=== PATIENT | female | born 1970 | race Two or more races ===

== ENCOUNTER 2024-04-19 09:25 | Emergency (ER) | payer OTHER ==
[~2024-04-19] VITALS: Ht 162.6 cm; Wt 104.7 kg
[2024-04-19 11:39] LABS: COVID19 ANTIGEN SOFIA FIA NEGATIVE (NEGATIVE); Rapid Influenza A Negative (Negative); Rapid Influenza B Negative (Negative)
[2024-04-19] MEDS ORDERED: PROM1SOL4 PO (12:13)
[2024-04-19] MEDS ORDERED: IBUP-1455 PO (12:13)
--- NOTE | 2024-04-19 12:14 | ED.PDOC ---
Eye-HPI HPI Comments pt complaining of ST x 2 days, she has also been having mild cough with chest tightness. no fever. ST feels like it is getting worse. Chief Complaint: Sore Throat Time Seen by MD: 10:21 Reviewed Notes: Nurses Notes Allergies: Coded Allergies: NO KNOWN ALLERGIES (Unverified , 04/19/24) Information Source: Patient Mode of Arrival: Ambulatory Past Medical History PAST MEDICAL HISTORY: Denies Surgical History: Denies all surgeries PRODUCT TRANSFER PUMPER History: No Pertinent PRODUCT TRANSFER PUMPER History Constitutional: denies: chills, diaphoresis, fatigue, fever, malaise, sweats, weakness, others EENTM: reports: nose congestion, throat swelling; denies: blurred vision, double vision, ear bleeding, ear discharge, ear drainage, ear pain, ear ringing, eye pain, eye redness, hearing loss, mouth pain, mouth swelling, nasal discharge, nose bleeding, nose pain, photophobia, tearing, throat pain, voice changes, others Respiratory: denies: cough, hemoptysis, orthopnea, SOB at rest, shortness of breath, SOB with excertion, stridor, wheezing, others Cardiovascular: denies: chest pain, dizzy spells, diaphoresis, Dyspnea on exertion, edema, irregular heart beat, left arm pain, lightheadedness, palpitations, PND, syncope, others Gastrointestinal: denies: abdomen distended, abdominal pain, blood streaked bowels, constipated, diarrhea, dysphagia, difficulty swallowing, hematemesis, melena, nausea, poor appetite, poor fluid intake, rectal bleeding, rectal pain, vomiting, others Genitourinary: denies: abnormal vagina bleeding, burning, dyspareunia, dysuria, flank pain, frequency, hematuria, incontinence, pain, , vagina d ischarge, urgency, others Neurological: denies: dizziness, fainting, headache, left sided numbness, left sided weakness, numbness, paresthesia, pre-existing deficit, right sided numbness, right sided weakness, seizure, speech problems, tingling, tremors, weakness, others Musculoskeletal: denies: back pain, gout, joint pain, joint swelling, muscle pain, muscle stiffness, neck pain, others Integumetry: denies: bruises, change in color, change in hair/nails, dryness, laceration, lesions, lumps, rash, wounds, others Allergic/Immunocompromised: denies: Difficulty Healing, Frequent Infections, Hives, Itching, others Hematologic/Lymphatic: denies: anemia, blood clots, easy bleeding, easy bruising, swollen glands, others Physical Exam General Appearance: No Apparent Distress, Normal HEENT: Normal ENT Inspection, Pharynx Normal, TMs Normal Neck: Full Range of Motion, Non-Tender, Normal, Normal Inspection Respiratory: Chest Non-Tender, Lungs Clear, No Accessory Muscle Use, No Respiratory Distress, Normal Breath Sounds Cardiovascular: No Edema, No JVD, No Murmur, No Gallop, Normal Peripheral Pulses, Regular Rate/Rhythm Breast Exam: Deferred Gastrointestinal: No Organomegaly, Non Tender, No Pulsatile Mass, Normal Bowel Sounds, Soft Genitalia: Deferred Pelvic: Deferred Rectal: Deferred Extremities: No calf tenderness, Normal capillary refill, Normal inspection, Normal range of motion, Non-tender, No pedal edema Musculoskeletal : Apperance: Normal Neurologic: Alert, performance improvement coordinator II-XII nml as Tested, No Motor Deficits, Normal Affect, Normal Mood, No Sensory Deficits Cerebellar Function: Normal Reflexes: Normal Skin: Dry, Normal Color, Warm Lymphatic: No Adenopathy Was a procedure done? Was a procedure done?: No EENT DIFF Eye: N/A Sore Throat: Peritonsillar Abscess, Peritonsillar Cellulitis, Pharyngitis X-Ray, Labs, Meds, VS Vital Signs Date Time Temp Pulse Resp B/P (MAP) Pulse Ox O2 Delivery O2 Flow Rate FiO2 04/19/24 10:33 Room Air* 0 21 04/19/24 09:40 98.6 80 20 169/96 (120) 98 Lab Test 04/19/24 10:30 Range/Units Influenza Type A Antigen Negative Negative Influenza Type B Antigen Negative Negative SARS-CoV-2 Antigen (Rapid) Negative NEGATIVE X-Ray, Labs, Meds, VS Comment vitals reviewed labs neg pt clinically stable for DC Time of 1ST Reevaluation: 12:14 Reevaluation 1ST: Improved Patient Education/Counseling: Diagnosis, Treatment, Need For Follow Up (follow up with pcp in 3-5 days) Family Education/Counseling: Diagnosis Departure 1 Departure Time of Disposition: 12:12 Impression: Primary Impression: URI (upper respiratory infection) Qualified Codes: J06.9 - Acute upper respiratory infection, unspecified Disposition: HOME / SELF CARE / HOMELESS Condition: Fair e-Prescriptions Promethazine-Dm (Promethazine Dm 6.25-15 mg/5Ml) 1 Ambika Ambika 5 ML PO TID PRN, #240 ML Prov: BRIAN ZAMBRANO 04/19/24 Ibuprofen Micronized (Ibuprofen) 800 Mg Tab 800 MG PO TID PRN, #30 TAB Prov: BRIAN ZAMBRANO 04/19/24 Discharged With: Self Critical Care Note Critical Care Time?: No Stability Stability form required: No Heart Score Heart Score: Heart Score Response (Comments) Value History N/A 0 EKG N/A 0 Age N/A 0 Risk Factors N/A 0 Troponin N/A 0 Total 0 BRIAN ZAMBRANO Apr 19, 2024 12:14
[2024-04-19 12:20] VITALS: BP 125/92; PULSE 71; RESP 18; TEMP 98.6; O2SAT 98
== END 2024-04-19 12:24 | disposition home or self-care (01) ==
LOC: ER 09:25
DX: J06.9 Acute upper respiratory infection, unspecified (principal); R07.89 Other chest pain; Z20.822 Contact with and (suspected) exposure to COVID-19
CPT/HCPCS: 36415; 87426; 87804

== ENCOUNTER 2025-04-02 19:51 | Emergency (ER) | payer OTHER ==
[~2025-04-02] VITALS: Ht 162.6 cm; Wt 108.6 kg
[~2025-04-02 19:51] MED LIST: IBUP-1455 PO; PROM1SOL4 PO
--- NOTE | 2025-04-02 20:46 | ED.PDOC ---
HPI Comments 54-year-old female with a past medical history of hypertension, hypothyroidism, rheumatoid arthritis, and lower extremity varices has come to the ED with chief complaints of dizziness that started today afternoon. She reports after feeling dizzy, she checked her blood pressure at home and it was 180/112 mmHg which prompted her to visit the ER. On inquiry, patient states she took her antihypertensive medication Benazepril 5mg today morning and has been compliant with her medications daily. Patient reports the dizziness lasted for about an hour, associated with tingling sensation in her left lower face, right-sided shoulder pain, fatigue, nausea and 1 episode of nonbloody, watery emesis. She also reports of burning sensation in her right leg and is concerned regarding her varicies. On inquiry, patient reports she has a slight dry cough, but denies any fever, chills, recent emotional stressors, facial drooping, slurring of speech, weakness in any extremity, vision changes, chest pain, shortness of breath, palpitations, recent travel history or any sick contacts. On initial assessment, patient is A&O x4, blood pressure is 159/88 mmHg, temp 97.8, RR 16, HR 83, SpO2 99% in room air. Chief Complaint: Dizziness Time Seen by MD: 20:05 Reviewed Notes: Nurses Notes, Medications, Allergies Allergies: Coded Allergies: NO KNOWN ALLERGIES (Unverified , 04/19/24) Home Meds Active Scripts Promethazine-Dm (Promethazine Dm 6.25-15 mg/5Ml) 1 Ambika Ambika, 5 ML PO TID PRN, #240 ML Prov:BRIAN KURTZ 04/19/24 Ibuprofen Micronized (Ibuprofen) 800 Mg Tab, 800 MG PO TID PRN, #30 TAB Prov:BRIAN KURTZ 04/19/24 Information Source: Patient Mode of Arrival: Ambulatory Severity: Mild Timing: Hours Duration: Since onset Prehospital treatment: None Onset: At Rest Cardiac Risk Factors: HTN PE Risk Factors: None History of: Other (varices) Modifying Factors: Nothing Associated Signs and Symptoms: N/V Past Medical History PAST MEDICAL HISTORY: Arthritis, HTN, Thyroid Past Medical History (Other): Lower extremity varices Surgical History: Denies all surgeries Surgical History (Other): Lower extremity varices surgery in 2014 SHREDDER TENDER PEAT History: No Pertinent SHREDDER TENDER PEAT History Family History Family History: Reviewed,noncontributory to illness Social History Smoker: Non-Smoker Alcohol: Denies ETOH Use Drugs: Denies Drug Use Constitutional: denies: chills, diaphoresis, fatigue, fever, malaise, sweats, weakness, others EENTM: denies: blurred vision, double vision, ear bleeding, ear discharge, ear drainage, ear pain, ear ringing, eye pain, eye redness, hearing loss, mouth pain, mouth swelling, nasal discharge, nose bleeding, nose congestion, nose pain, photophobia, tearing, throat pain, throat swelling, voice changes, others Respiratory: reports: cough; denies: hemoptysis, orthopnea, SOB at rest, shortness of breath, SOB with excertion, stridor, wheezing, others Cardiovascular: reports: dizzy spells, lightheadedness; denies: chest pain, diaphoresis, Dyspnea on exertion, edema, irregular heart beat, left arm pain, palpitations, PND, syncope, others Gastrointestinal: denies: abdomen distended, abdominal pain, blood streaked bowels, constipated, diarrhea, dysphagia, difficulty swallowing, hematemesis, melena, nausea, poor appetite, poor fluid intake, rectal bleeding, rectal pain, vomiting, others Genitourinary: denies: abnormal vagina bleeding, burning, dyspareunia, dysuria, flank pain, frequency, hematuria, incontinence, pain, , vagina discharge, urgency, others Neurological: reports: tingling (On the left side of the lower face); denies: dizziness, fainting, headache, left sided numbness, left sided weakness, numbness, paresthesia, pre-existing deficit, right sided numbness, right sided weakness, seizure, speech problems, tremors, weakness, others Musculoskeletal: reports: others (Right shoulder pain, burning sensation and pain in right lower extremity); denies: back pain, gout, joint pain, joint swelling, muscle pain, muscle stiffness, neck pain Integumetry: denies: bruises, change in color, change in hair/nails, dryness, laceration, lesions, lumps, rash, wounds, others Allergic/Immunocompromised: denies: Difficulty Healing, Frequent Infections, Hives, Itching, others Hematologic/Lymphatic: denies: anemia, blood clots, easy bleeding, easy bruising, swollen glands, others Endocrine: denies: excessive hunger, excessive sweating, excessive thirst, excessive urination, flushing, intolerance to cold, intolerance to heat, unexpl ained weight gain, unexplained weight loss, others Psychiatric: denies: anxiety, bipolar disorder, depression, hopeless, panic disorder, schizophrenia, sleepless, suicidal, others Physical Exam General Appearance: Obese HEENT: Other (No JVD, no pallor, no icterus, patient maintains eye contact) Neck: Full Range of Motion, Other (No enlarged lymph nodes,) Respiratory: No Accessory Muscle Use, No Respiratory Distress, Normal Breath Sounds, Other (Absence of wheezing, stridor, rhonchi) Cardiovascular: No Edema, No JVD, No Murmur, Regular Rate/Rhythm Breast Exam: Deferred Gastrointestinal: none, Normal Bowel Sounds, Other (No tenderness, no rebound tenderness, no guarding, no masses felt) Genitalia: Deferred Pelvic: Deferred Rectal: Deferred Extremities: Leg edema, No calf tenderness, Normal range of motion, Non-tender Neurologic: Normal Affect, Normal Mood, Other (No facial drooping, no sensory motor deficits noted) Cerebellar Function: Normal Reflexes: Normal Skin: Normal Color, Other (No bruising, no rashes, no lacerations) Lymphatic: Other (No cervical lymphadenopathy palpated) Was a procedure done? Was a procedure done?: No CP Differential Dx Differential Diagnosis: Other Other Differential Diagnosis Hypertensive urgency Differential Diagnosis: HTN Essential X-Ray, Labs, Meds, VS Vital Signs Date Time Temp Pulse Resp B/P (MAP) Pulse Ox O2 Delivery O2 Flow Rate FiO2 04/02/25 19:53 97.8 83 16 159/88 99 97.8 Lab Test 04/02/25 20:56 Range/Units White Blood Count 7.5 4.4-10.8 10^3/uL Red Blood Count 4.17 4.0-5.20 10^6/uL Hemoglobin 13.1 12.2-16.2 g/dL Hematocrit 37.6 36.0-46.0 % Mean Corpuscular Volume 90.2 80.0-100.0 fL Mean Corpuscular Hemoglobin 31.5 28.0-32.0 pg Mean Corpuscular Hemoglobin Concent 34.9 32.0-36.0 g/dL Red Cell Distribution Width 12.9 11.8-14.3 % Platelet Count 227 140-450 10^3/uL Mean Platelet Volume 8.2 6.9-10.8 fL Neutrophils (%) (Auto) 69.0 37.0-80.0 % Lymphocytes (%) (Auto) 25.7 10.0-50.0 % Monocytes (%) (Auto) 4.6 0.0-12.0 % Eosinophils (%) (Auto) 0.3 0.0-7.0 % Basophils (%) (Auto) 0.4 0.0-2.0 % Neutrophils # (Auto) 5.2 1.6-8.6 10 ^3/uL Lymphocytes # (Auto) 1.9 0.4-5.4 10 ^3/uL Monocytes # (Auto) 0.3 0-1.3 10 ^3/uL Eosinophils # (Auto) 0 0-0.8 10 ^3/uL Basophils # (Auto) 0 0-0.2 10 ^3/uL Nucleated Red Blood Cells 0.1 % Sodium Level 144 136-145 mmol/L Potassium Level 4.3 3.5-5.1 mmol/L Chloride Level 101 98-107 mmol/L Carbon Dioxide Level 34 H 20-31 mmol/L Anion Gap 9 5-15 Blood Urea Nitrogen 15 9-23 mg/dL Creatinine 0.68 0.550-1.02 mg/dL Glomerular Filtration Rate Calc 105 >90 mL/min BUN/Creatinine Ratio 22.1 H 10.0-20.0 Serum Glucose 96 74-106 mg/dL Calcium Level 9.8 8.7-10.4 mg/dL The patient's CBC and chemistry panel are within normal limits. The ultrasound of the lower extremities are negative for any DVT The chest x-ray is negative The patient is being discharged with a diagnosis of hypertensive urgency The patient will return to the emergency department's the condition worsens. The patient understands and agrees with the management. Images Reviewed?: Images reviewed and evaluated by me Time of 1ST Reevaluation: 21:50 Reevaluation 1ST: Improved Patient Education/Counseling: Diagnosis, Treatment, Prognosis, Need For Follow Up Family Education/Counseling: No Family Present Comments Patient came in with dizziness and elevated blood pressure. CBC and BMP were unremarkable, EKG shows normal sinus rhythm. Chest x-ray showed 'No acute disease'. Bilateral lower extremity Doppler was done as patient complained of burning sensation in her lower extremity which showed 'no sonographic evidence for DVT in bilateral extremities, left popliteal fossa Rodriguez cyst'. Patient is now stable and is being discharged. She has been counseled to follow up with primary care physician, adhere to a low-salt diet and to return to the ER if she has any distress such as chest pain, shortness of breath, headache, elevated blood pressure, dizziness, palpitations or any other symptoms. SEPSIS Sepsis Screen Date sepsis recognized/suspect: Apr 02, 2025 Time Sepsis recognized/suspect: 1952 Recent Procedure: No On Antibiotic Therapy: No Respiratory Rate >20: No Heart Rate >90: No Temp<36 C (96.8 F) or >38.3 C: No SBP <90 or MAP <65 mmHG: No New Acute Mental Status Change: No Is the patient on CPAP, BIPAP,: No Physician Orders Chest Xray 1 View (04/02/25 20:24) Bilat Lower Dvt (04/02/25 20:24) Vital Signs Date Time Temp Pulse Resp B/P (MAP) Pulse Ox O2 Delivery O2 Flow Rate FiO2 04/02/25 19:53 97.8 83 16 159/88 99 97.8 Laboratory Tests Test 04/02/25 20:56 White Blood Count 7.5 10^3/uL (4.4-10.8) Departure 1 Departure Time of Disposition: 22:00 Impression: Primary Impression: Hypertensive urgency Disposition: 01 HOME / SELF CARE / HOMELESS Condition: Fair Discharged With: Self Critical Care Note Critical Care Time?: No Stability Stability form required: No Heart Score Heart Score: Heart Score Response (Comments) Value History N/A 0 EKG N/A 0 Age N/A 0 Risk Factors N/A 0 Troponin N/A 0 Total 0 CHANDANA MCNAIR Apr 02, 2025 20:46 DHARMESH TOLEDO MD Apr 02, 2025 22:01
--- NOTE | 2025-04-02 21:03 | DVH ---
CHEST RADIOGRAPH Indication: SOB, dry cough Technique: Single frontal view of the chest was obtained COMPARISON: None FINDINGS: Lungs and pleural spaces are clear. Cardiac silhouette and rio are within normal limits. Bones and soft tissues demonstrate no significant abnormality. IMPRESSION: No acute disease.
[2025-04-02 21:23] LABS: Hematocrit 37.6 % (36.0-46.0); Hemoglobin 13.1 g/dL (12.2-16.2); Mean Corpuscular Hemoglobin 31.5 pg (28.0-32.0); Mean Corpuscular Volume 90.2 fL (80.0-100.0); Nucleated Red Blood Cells % 0.1 %
[2025-04-02 21:28] LABS: Anion Gap 9 (5-15); Chloride 101 mmol/L (98-107); Potassium 4.3 mmol/L (3.5-5.1); Sodium 144 mmol/L (136-145)
[2025-04-02 21:29] LABS: Calcium 9.8 mg/dL (8.7-10.4)
[2025-04-02 21:34] LABS: BUN/Creatinine Ratio 22.1 (10.0-20.0); Blood Urea Nitrogen 15 mg/dL (9-23); Glucose 96 mg/dL (74-106)
[2025-04-02 21:39] LABS: Carbon Dioxide 34 mmol/L (20-31)
--- NOTE | 2025-04-02 21:42 | ECG ---
[facility] Test Date: 2025-04-02 Test Time: 21:40:26 Pat Name: EVA LAZARO Department: ER Room: Gender: F Trouble Shooting Mechanic: MARIBELL : 1970 Requested By: CHANDANA MCNAIR Order Number: [id number] Reading MD: Jin Casillas Measurements Intervals [place] Rate: 67 P: 65 GA: 137 QRS: 68 QRSD: 81 T: -12 QT: 384 QTc: 406 Interpretive Statements Sinus rhythm Borderline repolarization abnormality Electronically Signed On 04-04-2025 17:46:44 PST by Jin Casillas Please click the below link to view image of tracing.
--- NOTE | 2025-04-02 21:43 | DVH ---
CLINICAL HISTORY: lower Extremity pain , history of varices TECHNIQUE: Color and duplex doppler imaging of the bilateral lower extremity veins was performed. Vessel compression if possible was also performed. WID: COMPARISON: None FINDINGS: Right Lower Extremity: Right common femoral vein: Normal compressibility and flow. Right femoral vein: Normal compressibility and flow. Right popliteal vein: Normal compressibility and flow. Left Lower Extremity: Left common femoral vein: Normal compressibility and flow. Left femoral vein: Normal compressibility and flow. Left popliteal vein: Normal compressibility and flow. Rodriguez's cyst in the left popliteal fossa measuring 4.9 x 2.7 x 1.8 cm IMPRESSION: 1. NO SONOGRAPHIC EVIDENCE FOR DEEP VENOUS THROMBOSIS IN THE BILATERAL LOWER EXTREMITY VEINS. 2. Left popliteal fossa Rodriguez's cyst.
[2025-04-02 22:11] VITALS: BP 160/101; PULSE 73; RESP 18; TEMP 97.3; O2SAT 95
== END 2025-04-02 22:13 | disposition home or self-care (01) ==
LOC: ER 19:51
DX: I16.0 Hypertensive urgency (principal); I10 Essential (primary) hypertension; E03.9 Hypothyroidism, unspecified; M06.9 Rheumatoid arthritis, unspecified; M25.511 Pain in right shoulder; Z79.899 Other long term (current) drug therapy; Z98.890 Other specified postprocedural states
CPT/HCPCS: 36415; 71045; 80048; 85025; 93005; 93970